=== PATIENT | female | born 1990 | race American Indian/Alaskan Native ===

== ENCOUNTER 2019-01-24 21:46 | Emergency (ER) | payer OTHER ==
[2019-01-24 21:53] VITALS: BP 113/68
--- NOTE | 2019-01-24 22:07 | Event Note ---
ED Screening Note Date of service: 01/24/19 Time: 22:04 ED Screening Note: This is a 28 y.o. F. that presents to the ER with abdominal pain radiating to back x 1 week. Reports nausea after eating. PMH: sickle cell trait LMP 11/21/2018, A0, history of irregular menses. Possible risk of This initial assessment/diagnostic orders/clinical plan/treatment(s) is/are subject to change based on patients health status, clinical progression and re- assessment by fellow clinical providers in the ED. Further treatment and workup at subsequent clinical providers discretion. Patient/guardian urged not to elope from the ED as their condition may be serious if not clinically assessed and managed. Initial orders include: Labs
[2019-01-24 22:46] LABS: Hematocrit 34.3 % (30.3-42.9); Hemoglobin 11.9 gm/dl (10.1-14.3); Mean Corpuscular HGB Conc 35 % (30-34); Mean Corpuscular Volume 83 fl (79-97); Platelet Count 249 K/mm3 (140-440); Red Blood Count 4.12 M/mm3 (3.65-5.03); Red Cell Distribution Width 13.9 % (13.2-15.2)
[2019-01-24 22:56] LABS: Bilirubin,Urine NEG (Negative); Blood,Urine NEG (Negative); Color,Urine Yellow (Yellow); Protein,Urine <15 mg/dL mg/dL (Negative); RBC,Urine < 1.0 /HPF (0.0-6.0)
[2019-01-24 23:06] LABS: WBC,Urine < 1.0 /HPF (0.0-6.0)
[2019-01-24 23:10] LABS: Alanine Aminotransferase 9 units/L (7-56); Albumin 3.6 g/dL (3.9-5); BUN/Creatinine Ratio 13; Blood Urea Nitrogen 9 mg/dL (7-17); Calcium 9.1 mg/dL (8.4-10.2); Hemolysis Index 27
[2019-01-24 23:35] LABS: Basophils % (Manual) 0 % (0.0-1.8); Total Cells Counted 100
[2019-01-24 23:40] LABS: RBC Morphology Normal
--- NOTE | 2019-01-24 23:46 | Emergency Department Report ---
ED Abdominal Pain HPI - General Chief Complaint: Abdominal Pain Stated Complaint: BACK PAIN,ABD PAIN AND HEADACHE Time Seen by Provider: 01/24/19 22:03 Source: patient Mode of arrival: Ambulatory Limitations: No Limitations - History of Present Illness Initial Comments: Patient is a 28-year-old female who presents to the emergency Department with complaints of lower back pain and suprapubic abdominal pain that began a week ago. She has associated nausea. She denies any vomiting, diarrhea, fever, urinary symptoms. She does not report any vaginal discharge or vaginal bleeding. She states her last menstrual period was at the end of October. She is not sure if she is or not. She has a past medical history of sickle cell trait. She states she has an allergy to penicillins. She denies any daily medications. - Related Data Allergies Allergy/AdvReac Type Severity Reaction Status Date / Time Penicillins Allergy Hives Verified 01/24/19 22:07 ED Review of Systems ROS: Stated complaint: BACK PAIN,ABD PAIN AND HEADACHE Other details as noted in HPI Comment: All other systems reviewed and negative ED Past Medical Hx - Past Medical History Previous Medical History?: Yes Additional medical history: Sickle Cell Trait - Surgical History Past Surgical History?: No - Social History Smoking Status: Never Smoker Substance Use Type: None ED Physical Exam - General Limitations: No Limitations General appearance: alert, in no apparent distress - Head Head exam: Present: atraumatic, normocephalic - Eye Eye exam: Present: normal appearance, PERRL - ENT ENT exam: Present: mucous membranes moist - Respiratory Respiratory exam: Present: normal lung sounds bilaterally. Absent: respiratory distress, wheezes, rales, rhonchi, stridor, chest wall tenderness, accessory muscle use, decreased breath sounds, prolonged expiratory - Cardiovascular Cardiovascular Exam: Present: regular rate, normal rhythm, normal heart sounds. Absent: systolic murmur, diastolic murmur, rubs, gallop - GI/Abdominal GI/Abdominal exam: Present: soft, normal bowel sounds. Absent: distended, tenderness, guarding, rebound, rigid - Back Exam Back exam: Absent: CVA tenderness (R), CVA tenderness (L) - Neurological Exam Neurological exam: Present: alert, oriented X3 - Psychiatric Psychiatric exam: Present: normal affect, normal mood - Skin Skin exam: Present: warm, dry, intact ED Course Vital Signs 01/24/19 21:51 Temperature 98.2 F Pulse Rate 73 Respiratory 18 Rate Blood Pressure 113/68 O2 Sat by Pulse 100 Oximetry ED Medical Decision Making - Lab Data Result diagrams: 01/24/19 22:28 01/24/19 22:28 Lab Results 01/24/19 01/24/19 01/24/19 Range/Units 22:28 22:28 22:28 WBC 9.1 (4.5-11.0) K/mm3 RBC 4.12 (3.65-5.03) M/mm3 Hgb 11.9 (10.1-14.3) gm/dl Hct 34.3 (30.3-42.9) % MCV 83 (79-97) fl MCH 29 (28-32) pg MCHC 35 H (30-34) % RDW 13.9 (13.2-15.2) % Plt Count 249 (140-440) K/mm3 Add Manual Diff Complete Total Counted 100 Seg Neuts % (Manual) 59.0 (40.0-70.0) % Band Neutrophils % 0 % Lymphocytes % (Manual) 31.0 (13.4-35.0) % Reactive Lymphs % (Man) 0 % Monocytes % (Manual) 4.0 (0.0-7.3) % Eosinophils % (Manual) 6.0 H (0.0-4.3) % Basophils % (Manual) 0 (0.0-1.8) % Metamyelocytes % 0 % Myelocytes % 0 % Promyelocytes % 0 % Blast Cells % 0 % Nucleated RBC % Not Reportable Seg Neutrophils # Man 5.4 (1.8-7.7) K/mm3 Band Neutrophils # 0.0 K/mm3 Lymphocytes # (Manual) 2.8 (1.2-5.4) K/mm3 Abs React Lymphs (Man) 0.0 K/mm3 Monocytes # (Manual) 0.4 (0.0-0.8) K/mm3 Eosinophils # (Manual) 0.5 H (0.0-0.4) K/mm3 Basophils # (Manual) 0.0 (0.0-0.1) K/mm3 Metamyelocytes # 0.0 K/mm3 Myelocytes # 0.0 K/mm3 Promyelocytes # 0.0 K/mm3 Blast Cells # 0.0 K/mm3 WBC Morphology Not Reportable Hypersegmented Neuts Not Reportable Hyposegmented Neuts Not Reportable Hypogranular Neuts Not Reportable Smudge Cells Not Reportable Toxic Granulation Not Reportable Toxic Vacuolation Not Reportable Dohle Bodies Not Reportable Pelger-Huet Anomaly Not Reportable [place] Rods Not Reportable Platelet Estimate Appears normal Clumped Platelets Not Reportable Plt Clumps, EDTA Not Reportable Large Platelets Not Reportable Giant Platelets Not Reportable Platelet Satelliting Not Reportable Plt Morphology Comment Not Reportable RBC Morphology Normal Dimorphic RBCs Not Reportable Polychromasia Not Reportable Hypochromasia Not Reportable Poikilocytosis Not Reportable Anisocytosis Not Reportable Microcytosis Not Reportable Macrocytosis Not Reportable Spherocytes Not Reportable Pappenheimer Bodies Not Reportable Sickle Cells Not Reportable Target Cells Not Reportable Tear Drop Cells Not Reportable Ovalocytes Not Reportable Helmet Cells Not Reportable Arvizu-[place]enburg Bodies Not Reportable [place] Rings Not Reportable [place] Cells Not Reportable Bite Cells Not Reportable Crenated Cell Not Reportable Elliptocytes Not Reportable Acanthocytes (Spur) Not Reportable Rouleaux Not Reportable Hemoglobin C Crystals Not Reportable Schistocytes Not Reportable Malaria parasites Not Reportable [place] Bodies Not Reportable Hem Pathologist Commnt No Sodium 137 (137-145) mmol/L Potassium 3.9 (3.6-5.0) mmol/L Chloride 99.2 (98-107) mmol/L Carbon Dioxide 24 (22-30) mmol/L Anion Gap 18 mmol/L BUN 9 (7-17) mg/dL Creatinine 0.7 (0.7-1.2) mg/dL Estimated GFR > 60 ml/min BUN/Creatinine Ratio 13 % Glucose 106 H (65-100) mg/dL Calcium 9.1 (8.4-10.2) mg/dL Total Bilirubin 0.20 (0.1-1.2) mg/dL AST 12 (5-40) units/L ALT 9 (7-56) units/L Alkaline Phosphatase 59 (35-129) units/L Total Protein 7.2 (6.3-8.2) g/dL Albumin 3.6 L (3.9-5) g/dL Albumin/Globulin Ratio 1.0 % Lipase 21 (13-60) units/L HCG, Qual Positive (Negative) HCG, Quant (0-4) mIU/mL Urine Color (Yellow) Urine Turbidity (Clear) Urine pH (5.0-7.0) Ur Specific [place] (1.003-1.030) Urine Protein (Negative) mg/dL Urine Glucose (UA) (Negative) mg/dL Urine Ketones (Negative) mg/dL Urine Blood (Negative) Urine Nitrite (Negative) Urine Bilirubin (Negative) Urine Urobilinogen (<2.0) mg/dL Ur Leukocyte Esterase (Negative) Urine WBC (Auto) (0.0-6.0) /HPF Urine RBC (Auto) (0.0-6.0) /HPF U Epithel Cells (Auto) (0-13.0) /HPF 01/24/19 01/24/19 Range/Units 22:28 Unknown WBC (4.5-11.0) K/mm3 RBC (3.65-5.03) M/mm3 Hgb (10.1-14.3) gm/dl Hct (30.3-42.9) % MCV (79-97) fl MCH (28-32) pg MCHC (30-34) % RDW (13.2-15.2) % Plt Count (140-440) K/mm3 Add Manual Diff Total Counted Seg Neuts % (Manual) (40.0-70.0) % Band Neutrophils % % Lymphocytes % (Manual) (13.4-35.0) % Reactive Lymphs % (Man) % Monocytes % (Manual) (0.0-7.3) % Eosinophils % (Manual) (0.0-4.3) % Basophils % (Manual) (0.0-1.8) % Metamyelocytes % % Myelocytes % % Promyelocytes % % Blast Cells % % Nucleated RBC % Seg Neutrophils # Man (1.8-7.7) K/mm3 Band Neutrophils # K/mm3 Lymphocytes # (Manual) (1.2-5.4) K/mm3 Abs React Lymphs (Man) K/mm3 Monocytes # (Manual) (0.0-0.8) K/mm3 Eosinophils # (Manual) (0.0-0.4) K/mm3 Basophils # (Manual) (0.0-0.1) K/mm3 Metamyelocytes # K/mm3 Myelocytes # K/mm3 Promyelocytes # K/mm3 Blast Cells # K/mm3 WBC Morphology Hypersegmented Neuts Hyposegmented Neuts Hypogranular Neuts Smudge Cells Toxic Granulation Toxic Vacuolation Dohle Bodies Pelger-Huet Anomaly [place] Rods Platelet Estimate Clumped Platelets Plt Clumps, EDTA Large Platelets Giant Platelets Platelet Satelliting Plt Morphology Comment RBC Morphology Dimorphic RBCs Polychromasia Hypochromasia Poikilocytosis Anisocytosis Microcytosis Macrocytosis Spherocytes Pappenheimer Bodies Sickle Cells Target Cells Tear Drop Cells Ovalocytes Helmet Cells Arvizu-Lunenburg Bodies [place] Rings [place] Cells Bite Cells Crenated Cell Elliptocytes Acanthocytes (Spur) Rouleaux Hemoglobin C Crystals Schistocytes Malaria parasites [place] Bodies Hem Pathologist Commnt Sodium (137-145) mmol/L Potassium (3.6-5.0) mmol/L Chloride (98-107) mmol/L Carbon Dioxide (22-30) mmol/L Anion Gap mmol/L BUN (7-17) mg/dL Creatinine (0.7-1.2) mg/dL Estimated GFR ml/min BUN/Creatinine Ratio % Glucose (65-100) mg/dL Calcium (8.4-10.2) mg/dL Total Bilirubin (0.1-1.2) mg/dL AST (5-40) units/L ALT (7-56) units/L Alkaline Phosphatase (35-129) units/L Total Protein (6.3-8.2) g/dL Albumin (3.9-5) g/dL Albumin/Globulin Ratio % Lipase (13-60) units/L HCG, Qual (Negative) HCG, Quant 66468 H (0-4) mIU/mL Urine Color Yellow (Yellow) Urine Turbidity Clear (Clear) Urine pH 6.0 (5.0-7.0) Ur Specific [place] 1.013 (1.003-1.030) Urine Protein <15 mg/dl (Negative) mg/dL Urine Glucose (UA) Neg (Negative) mg/dL Urine Ketones Neg (Negative) mg/dL Urine Blood Neg (Negative) Urine Nitrite Neg (Negative) Urine Bilirubin Neg (Negative) Urine Urobilinogen 2.0 (<2.0) mg/dL Ur Leukocyte Esterase Neg (Negative) Urine WBC (Auto) < 1.0 (0.0-6.0) /HPF Urine RBC (Auto) < 1.0 (0.0-6.0) /HPF U Epithel Cells (Auto) 5.0 (0-13.0) /HPF - Radiology Data Radiology results: report reviewed Ordering Physician: MELIDA BAILEY Date of Service: 01/24/19 Procedure(s): US OB transvaginal Accession Number(s): [id number] cc: MELIDA BAILEY PROCEDURE: Transvaginal obstetrical ultrasound. TECHNIQUE: Real-time transvaginal sonography of the uterus, placenta, amniotic fluid, adnexa, and fetus was performed with image documentation. Measurements were obtained to determine age/size. M-mode Doppler was used to document heartbeat. HISTORY: , abdominal pain, LMP and of October. COMPARISONS: None. FINDINGS: The uterus measures 8.5 cm x 6.5 cm x 7.4 cm. The myometrium appears uniform. There is an intrauterine gestational sac. A pole is visible. Cardiac activity is documented at 145 bpm. The crown-rump length measurement is 10.5 mm. This indicates a menstrual age of 7 weeks 1 day. The estimated date of confinement is 09/12/2019. Both ovaries appear normal in size. There is a cyst in the right ovary measuring 2.2 cm. IMPRESSION: Viable intrauterine with a menstrual age of 7 weeks 1 day. This document is electronically signed by Kee Kimble MD., January 25 2019 01:21:58 AM ET Transcribed By: [facility] Dictated By: KEE KIMBLE MD Electronically Authenticated By: KEE KIMBLE MD Signed Date/Time: 01/25/19 0123 - Medical Decision Making Patient is a 28-year-old female who presents to the emergency Department with complaints of lower back pain and suprapubic abdominal pain that began a week ago. She has associated nausea. She denies any vomiting, diarrhea, fever, urinary symptoms. She does not report any vaginal discharge or vaginal bleeding. She states her last menstrual period was at the end of October. She is not sure if she is or not. She has a past medical history of sickle cell trait. She states she has an allergy to penicillins. She denies any daily medications. labs WNL. hcg qual was positive. [place] [id number]. UA is normal. OB US shows Viable intrauterine with a menstrual age of 7 weeks 1 day. advised pt to please drink plenty of fluids. Please begin to take a daily vitamin [id number]. Follow-up with [facility] in the next 2-3 days. may take tylenol for discomfort. Return to emergency room for any new or worsening symptoms. - Differential Diagnosis , ectopic, ovarian cyst, UTI Critical care attestation.: If time is entered above; I have spent that time in minutes in the direct care of this critically ill patient, excluding procedure time. ED Disposition Clinical Impression: Qualifiers: Weeks of gestation: less than 8 weeks Qualified Code(s): Z3A.01 - Less than 8 weeks gestation of Abdominal pain Qualifiers: Abdominal location: lower abdomen, unspecified Qualified Code(s): R10.30 - Lower abdominal pain, unspecified Back pain Qualifiers: Back pain location: low back pain Chronicity: acute Back pain laterality: unspecified Sciatica presence: without sciatica Qualified Code(s): M54.5 - Low back pain Disposition: - TO HOME OR SELFCARE Is pt being admited?: No Does the pt Need Aspirin: No Condition: Stable Instructions: (ED) Additional Instructions: Please drink plenty of fluids. Please begin to take a daily vitamin [id number]. Follow-up with [facility] in the next 2-3 days. may take tylenol for discomfort. Return to emergency room for any new or worsening symptoms. Referrals: PERI TAYLOR MD [Primary Care Provider] - 2-3 Days MAINOR GAMEZ MD [Staff Physician] - 2-3 Days Time of Disposition: :27 Print Language: DANISH
--- NOTE | 2019-01-25 01:19 | Ultrasound Report ---
PROCEDURE: Transabdominal obstetrical ultrasound. TECHNIQUE: Real-time transabdominal sonography of the uterus, placenta, amniotic fluid, adnexa, and fetus was performed with image documentation. Measurements were obtained to determine age/size. M-mode Doppler was used to document heartbeat. ADDITIONAL GESTATION: None. HISTORY: , abdominal pain, LMP and of October. COMPARISONS: None. FINDINGS: Image quality is limited because the patient's bladder was not completely distended. The patient also appears to be obese. The uterus is suboptimally visualized. There is an intrauterine gestational sac . This should be better evaluated with transvaginal imaging. Neither ovary is identified. IMPRESSION: Very limited study. Intrauterine . This document is electronically signed by Kee Abernathy MD., January 25 2019 01:17:43 AM ET
--- NOTE | 2019-01-25 01:23 | Ultrasound Report ---
PROCEDURE: Transvaginal obstetrical ultrasound. TECHNIQUE: Real-time transvaginal sonography of the uterus, placenta, amniotic fluid, adnexa, and fe tus was performed with image documentation. Measurements were obtained to determine age/size. M -mode Doppler was used to document heartbeat. HISTORY: , abdominal pain, LMP and of October. COMPARISONS: None. FINDINGS: The uterus measures 8.5 cm x 6.5 cm x 7.4 cm. The myometrium appears uniform. There is an intrauterin e gestational sac. A pole is visible. Cardiac activity is documented at 145 bpm. The crown-rump length measurement is 10.5 mm. This indicates a menstrual age of 7 weeks 1 day. The estimated date o f confinement is 09/12/2019. Both ovaries appear normal in size. There is a cyst in the right ovary me asuring 2.2 cm. IMPRESSION: Viable intrauterine with a menstrual age of 7 weeks 1 day. This document is electronically signed by Kee Abernathy MD., January 25 2019 01:21:58 AM ET
== END 2019-01-25 01:42 | disposition home or self-care (01) ==
LOC: ED 21:46
DX: O26.891 Other specified pregnancy related conditions, first trimester (principal); R10.30 Lower abdominal pain, unspecified; M54.5 Low back pain; Z3A.01 Less than 8 weeks gestation of pregnancy; Z88.0 Allergy status to penicillin; D57.3 Sickle-cell trait
CPT/HCPCS: 36415; 76801; 76817; 80053; 81001; 83690; 84702; 84703; 85007; 85025

== ENCOUNTER 2019-04-01 11:00 | Emergency (ER) | payer MEDICAID, OTHER ==
--- NOTE | 2019-04-01 11:13 | Event Note ---
ED Screening Note Date of service: 04/01/19 Time: 11:10 ED Screening Note: 28 y o who is at 16 weeks gestation followed by [facility] presents with abd pain and low back pain x 1 week This initial assessment/diagnostic orders/clinical plan/treatment(s) is/are subject to change based on patients health status, clinical progression and re- assessment by fellow clinical providers in the ED. Further treatment and workup at subsequent clinical providers discretion. Patient/guardian urged not to elope from the ED as their condition may be serious if not clinically assessed and managed. Initial orders include: ua, FHT via doppler
[2019-04-01 11:52] LABS: Bilirubin,Urine NEG (Negative); Blood,Urine NEG (Negative); Color,Urine Yellow (Yellow); Mucus,Urine FEW /HPF; Protein,Urine <15 mg/dL mg/dL (Negative); Urobilinogen,Urine < 2.0 mg/dL (<2.0)
[2019-04-01] MEDS ORDERED: TYLENOL PO ONE (12:16)
--- NOTE | 2019-04-01 12:31 | Emergency Department Report ---
HPI - General Chief Complaint: Abdominal Pain Time Seen by Provider: 04/01/19 11:10 - HPI HPI: 28-year-old female presents to the emergency department with complaint of a one-week history of intermittent abdominal pain, low back pain and a generalized headache. Patient is currently at about 16 weeks gestation. With this she is with 3 live children. She has a past medical history of sickle cell trait. She follows with Dr. Ximena Love at [facility] for [facility] COORDINATOR. She is on vitamins. She has not taken anything for her symptoms prior to arrival. Currently she has just some mild upper abdominal pain. She denies any problems with bowel or bladder, numbness or paresthesias, vision change, slurred speech, or any neurological deficits. ED Past Medical Hx - Past Medical History Previous Medical History?: Yes Hx Hypertension: No Hx CVA: No Hx Heart Attack/AMI: No Hx Congestive Heart Failure: No Hx Diabetes: No Hx Deep Vein Thrombosis: No Hx Pulmonary Embolism: No Hx GERD: No Hx Liver Disease: No Hx Renal Disease: No Hx of Cancer: No Hx Sickle Cell Disease: No Hx Arthritis: No Hx Headaches / Migraines: No Hx Seizures: No Hx Kidney Stones: No Hx Psychiatric Treatment: No Hx Asthma: No Hx COPD: No Hx Tuberculosis: No Hx Dementia: No Hx HIV: No Additional medical history: Sickle Cell Trait - Surgical History Past Surgical History?: No Hx Coronary Stent: No Hx Open Heart Surgery: No Hx Pacemaker: No Hx Internal Defibrillator: No Hx Cholecystectomy: No Hx Appendectomy: No Hx Breast Surgery: No - Social History Smoking Status: Never Smoker Substance Use Type: None ED Review of Systems ROS: Stated complaint: HEADACHES/SEVERE STOMACH/BACK PAIN Other details as noted in HPI Comment: All other systems reviewed and negative Constitutional: denies: chills, fever Eyes: denies: eye pain, vision change ENT: denies: ear pain, throat pain Respiratory: denies: cough, shortness of breath Cardiovascular: denies: chest pain, palpitations Gastrointestinal: abdominal pain. denies: vomiting Genitourinary: discharge. denies: dysuria Musculoskeletal: back pain. denies: arthralgia Skin: denies: rash, lesions Neurological: headache. denies: weakness, numbness, paresthesias Physical Exam - Physical Exam Vital Signs: Vital Signs 04/01/19 04/01/19 11:09 12:22 Temperature 98.1 F Pulse Rate 92 H Respiratory 16 16 Rate Blood Pressure 105/67 O2 Sat by Pulse 100 Oximetry Physical Exam: GENERAL: The patient is well-developed well-nourished. HENT: Normocephalic. Atraumatic. Patient has moist mucous membranes. EYES: Extraocular motions are intact. NECK: Supple. Trachea is midline. CHEST/LUNGS: Clear to auscultation. There is no respiratory distress noted. HEART/CARDIOVASCULAR: Regular. There is no tachycardia. There is no murmur. ABDOMEN: Abdomen is soft, nontender. Patient has normal bowel sounds. There is no abdominal distention. SKIN: Skin is warm and dry. NEURO: The patient is awake, alert, and oriented. The patient is cooperative. The patient has no focal neurologic deficits. Normal speech. MUSCULOSKELETAL: There is no tenderness or deformity. There is no limitation range of motion. There is no evidence of acute injury. BACK: There is both midline and bilateral paraspinal lumbar tenderness to palpation. No step-off or deformity. PELVIC: Deferred ED Course Vital Signs 04/01/19 04/01/19 11:09 12:22 Temperature 98.1 F Pulse Rate 92 H Respiratory 16 16 Rate Blood Pressure 105/67 O2 Sat by Pulse 100 Oximetry ED Medical Decision Making - Radiology Data Radiology results: report reviewed OB ULTRASOUND >= 14 WEEKS FETUS ULTRASOUND OB TRANSVAGINAL INDICATION: Abdominal pain during TECHNIQUE: Transabdominal and transvaginal ultrasound with color Doppler imaging. COMPARISON: 01/24/2019 FINDINGS: A single gestation intrauterine is present with variable presentation. The placenta is anterior, grade 0 and free of the cervical os. heart tones measure 158 bpm. The cervix measures 2.1 cm. Amniotic fluid volume is normal with a fluid index of . The intracranial structures, diaphragm, spine, cord insertion, stomach, kidneys, and bladder show no sonographic abnormality. There is poor visualization of the four-chamber heart and three- vessel cord. Biparietal diameter is 3.5 cm which equals 16 weeks 6 days. Head circumference is 13.5 cm which equals 17 weeks 0 days. Abdominal circumference is 11.6 cm which equals 17 weeks 2 days. Femur length is 2.4 cm which equals 17 weeks 2 days. Overall estimated sonographic age is 17 weeks 1 day. HC/AC ratio: 1.2. Cephalic index: 79. Estimated weight: 187 g. IMPRESSION: Viable single intrauterine as described. No acute abnormality is detected. Signer Name: Hitesh Zuñiga Jr, MD Signed: 04/01/2019 2:25 PM Workstation Name: [id number] - Medical Decision Making Patient presents to the emergency department with complaint of some intermittent abdominal pain, mild headache and some low back pain while . Ultrasound shows a live intrauterine at about 17 weeks with no acute abnormalities detected. Labs have been unremarkable including urinalysis. On examination she does not have any focal, motor or sensory deficits in her cranial nerves are intact. Vital signs stable. Afebrile. No obvious signs of preeclampsia. The patient had mentioned some vaginal discharge but she deferred the pelvic examination and says she will just follow-up with the ACADEMIC SUCCESS COORDINATOR. She is been given some Tylenol for her symptoms with some improvement. Patient was seen ambulatory in the emergency department and appears stable. She is instructed to return to the emergency Department with any worsening of her symptoms or any acute distress. - Differential Diagnosis lumbar strain, muscle spasm, UTI, , miscarriage, fibroids Critical Care Time: No Critical care attestation.: If time is entered above; I have spent that time in minutes in the direct care of this critically ill patient, excluding procedure time. ED Disposition Clinical Impression: Intermittent abdominal pain Qualifiers: Weeks of gestation: 17 weeks Qualified Code(s): Z3A.17 - 17 weeks gestation of Back pain Qualifiers: Back pain location: low back pain Chronicity: unspecified Back pain laterality: bilateral Sciatica presence: without sciatica Qualified Code(s): M54.5 - Low back pain Disposition: DC-01 TO HOME OR SELFCARE Is pt being admited?: No Condition: Stable Instructions: (ED), Acute Headache (ED), Abdominal Pain (ED), Back Pain (ED) Additional Instructions: Please follow-up with your ACADEMIC SUCCESS COORDINATOR in the next few days. Return to the emergency Department with any worsening of your symptoms or any acute distress. Continue taking your vitamins. You can take Tylenol every 4-6 hours, using weight-based dosing on the back of the bottle, as needed for any discomfort. Referrals: OBGYN, Your [Other] - 2-3 Days Time of Disposition: 15:05
[2019-04-01 13:39] LABS: HCG Qualitative,Urine Positive (Negative)
--- NOTE | 2019-04-01 14:30 | Ultrasound Report ---
OB ULTRASOUND >= 14 WEEKS FETUS ULTRASOUND OB TRANSVAGINAL INDICATION: Abdominal pain during TECHNIQUE: Transabdominal and transvaginal ultrasound with color Doppler imaging. COMPARISON: 01/24/2019 FINDINGS: A single gestation intrauterine is present with variable presentation. The placenta is ante rior, grade 0 and free of the cervical os. heart tones measure 158 bpm. The cervix measures 2. 1 cm. Amniotic fluid volume is normal with a fluid index of . The intracranial structures, diaphragm, spine, cord insertion, stomach, kidneys, and bladder sh ow no sonographic abnormality. There is poor visualization of the four-chamber heart and three-vessel cord. Biparietal diameter is 3.5 cm which equals 16 weeks 6 days. Head circumference is 13.5 cm which equals 17 weeks 0 days. Abdominal circumference is 11.6 cm which equals 17 weeks 2 days. Femur length is 2.4 cm which equals 17 weeks 2 days. Overall estimated sonographic age is 17 weeks 1 day. HC/AC ratio: 1.2. Cephalic index: 79. Estimated weight: 187 g. IMPRESSION: Viable single intrauterine as described. No acute abnormality is detected. Signer Name: Hitesh Zuñiga Jr, MD Signed: 04/01/2019 2:25 PM Workstation Name: [id number]
[2019-04-01 15:39] VITALS: BP 100/60
== END 2019-04-01 15:17 | disposition home or self-care (01) ==
LOC: ED 11:00
DX: O26.892 Other specified pregnancy related conditions, second trimester (principal); M54.5 Low back pain; Z88.0 Allergy status to penicillin; Z3A.17 17 weeks gestation of pregnancy
CPT/HCPCS: 76805; 76817; 81001; 81025; 99284

== ENCOUNTER 2019-05-27 11:14 | Emergency (ER) | payer MEDICAID ==
--- NOTE | 2019-05-27 11:29 | Emergency Department Report ---
Blank Doc - Documentation Documentation: 28-year-old female that presents with generlized abdominal pain and back pain with nausea. This initial assessment/diagnostic orders/clinical plan/treatment(s) is/are subject to change based on patient's health status, clinical progression and re- assessment by fellow clinical providers in the ED. Further treatment and workup at subsequent clinical providers discretion. Patient/guardians urged not to elope from the ED as their condition may be serious if not clinically assessed and managed. Initial orders include: 1- Patient sent to [facility] for further evaluation and treatment 2- labs 3- UA
[2019-05-27 13:28] LABS: Bilirubin,Urine NEG (Negative); Blood,Urine LG (Negative); Color,Urine Yellow (Yellow); Protein,Urine <15 mg/dL mg/dL (Negative); Urobilinogen,Urine < 2.0 mg/dL (<2.0)
[2019-05-27 13:36] LABS: Basophils # (Auto) 0.1 K/mm3 (0.0-0.1); Basophils % (Auto) 1.9 % (0.0-1.8); Eosinophils # (Auto) 0.2 K/mm3 (0.0-0.4); Hematocrit 33.2 % (30.3-42.9); Hemoglobin 10.7 gm/dl (10.1-14.3); Lymphocytes # (Auto) 2.5 K/mm3 (1.2-5.4); Mean Corpuscular HGB Conc 32 % (30-34); Mean Corpuscular Volume 80 fl (79-97); Monocytes # (Auto) 0.4 K/mm3 (0.0-0.8); Monocytes % (Auto) 5.9 % (0.0-7.3); Red Blood Count 4.15 M/mm3 (3.65-5.03); Red Cell Distribution Width 15.5 % (13.2-15.2)
[2019-05-27 14:16] LABS: Platelet Count 334 K/mm3 (140-440)
[2019-05-27 15:13] LABS: Alanine Aminotransferase 12 units/L (7-56); Albumin 4.5 g/dL (3.9-5); BUN/Creatinine Ratio 10; Blood Urea Nitrogen 8 mg/dL (7-17); Calcium 9.5 mg/dL (8.4-10.2); Hemolysis Index 12
--- NOTE | 2019-05-27 16:20 | XRay Report ---
ABDOMEN 1 VIEW(S) INDICATION / CLINICAL INFORMATION: back and abd pain. COMPARISON: None available. FINDINGS: TUBES / LINES: None. BOWEL GAS PATTERN/EXTRALUMINAL GAS: No significant abnormality. No pneumatosis or secondary signs of free air. ADDITIONAL FINDINGS: No significant additional findings. IMPRESSION: 1. No acute abnormality. Signer Name: Leo Paige MD Signed: 05/27/2019 4:15 PM Workstation Name: [id number]
--- NOTE | 2019-05-27 17:07 | Emergency Department Report ---
ED Abdominal Pain HPI - General Chief Complaint: Abdominal Pain Stated Complaint: BACK/STOMACH PAIN/HEADPAIN Time Seen by Provider: 05/27/19 11:28 Source: patient Mode of arrival: Ambulatory Limitations: No Limitations - History of Present Illness Initial Comments: Is a 28-year-old -[place] female who is complaining of some lower back discomfort and lower abdominal pain for approximately week. She states pains are worse at night and [facility] [employer] time. Also worse with movement. Patient states achy pain. There is no radiation. She denies nausea vomiting diarrhea but does have associated mild headache. Also states is been no dysuria vaginal discharge or vaginal bleeding. Patient denies cough cold congestion. - Related Data Previous Rx's Medication Instructions Recorded Last Taken Type Ibuprofen [Motrin 800 MG tab] 800 mg PO Q8HR PRN #10 tablet 05/27/19 Unknown Rx Allergies Allergy/AdvReac Type Severity Reaction Status Date / Time Penicillins Allergy Hives Verified 01/24/19 22:07 ED Review of Systems ROS: Stated complaint: BACK/STOMACH PAIN/HEADPAIN Other details as noted in HPI Comment: All other systems reviewed and negative ED Past Medical Hx - Past Medical History Previous Medical History?: No Hx Hypertension: No Hx CVA: No Hx Heart Attack/AMI: No Hx Congestive Heart Failure: No Hx Diabetes: No Hx Deep Vein Thrombosis: No Hx Pulmonary Embolism: No Hx GERD: No Hx Liver Disease: No Hx Renal Disease: No Hx Sickle Cell Disease: No Hx Arthritis: No Hx Headaches / Migraines: No Hx Seizures: No Hx Kidney Stones: No Hx Psychiatric Treatment: No Hx Asthma: No Hx COPD: No Hx Tuberculosis: No Hx Dementia: No Hx HIV: No Additional medical history: Sickle Cell Trait - Surgical History Past Surgical History?: No Hx Coronary Stent: No Hx Open Heart Surgery: No Hx Pacemaker: No Hx Internal Defibrillator: No Hx Cholecystectomy: No Hx Appendectomy: No Hx Breast Surgery: No - Social History Smoking Status: Never Smoker Substance Use Type: None - Medications Home Medications: Home Medications Medication Instructions Recorded Confirmed Last Taken Type Ibuprofen [Motrin 800 MG tab] 800 mg PO Q8HR PRN #10 tablet 05/27/19 Unknown Rx ED Physical Exam - General Limitations: No Limitations General appearance: alert, in no apparent distress - Head Head exam: Present: atraumatic, normocephalic - Eye Eye exam: Present: normal appearance - ENT ENT exam: Present: mucous membranes moist - Neck Neck exam: Present: normal inspection - Respiratory Respiratory exam: Present: normal lung sounds bilaterally. Absent: respiratory distress, wheezes, rales, rhonchi - Cardiovascular Cardiovascular Exam: Present: regular rate, normal rhythm, normal heart sounds. Absent: systolic murmur, diastolic murmur, rubs, gallop - GI/Abdominal GI/Abdominal exam: Present: soft, normal bowel sounds. Absent: distended, tenderness, guarding - Extremities Exam Extremities exam: Present: normal inspection - Back Exam Back exam: Present: normal inspection, paraspinal tenderness - Neurological Exam Neurological exam: Present: alert, oriented X3 - Psychiatric Psychiatric exam: Present: normal affect, normal mood - Skin Skin exam: Present: warm, dry, intact, normal color. Absent: rash ED Course Vital Signs 05/27/19 11:29 Temperature 98.1 F Pulse Rate 88 Respiratory 18 Rate Blood Pressure 120/78 O2 Sat by Pulse 98 Oximetry ED Medical Decision Making - Lab Data Result diagrams: 05/27/19 12:56 05/27/19 12:56 Lab Results 05/27/19 05/27/19 05/27/19 Range/Units 12:46 12:56 12:56 WBC 7.3 (4.5-11.0) K/mm3 RBC 4.15 (3.65-5.03) M/mm3 Hgb 10.7 (10.1-14.3) gm/dl Hct 33.2 (30.3-42.9) % MCV 80 (79-97) fl MCH 26 L (28-32) pg MCHC 32 (30-34) % RDW 15.5 H (13.2-15.2) % Plt Count 334 (140-440) K/mm3 Lymph % (Auto) 34.0 (13.4-35.0) % [place] % (Auto) 5.9 (0.0-7.3) % Eos % (Auto) 3.0 (0.0-4.3) % Baso % (Auto) 1.9 H (0.0-1.8) % Lymph # 2.5 (1.2-5.4) K/mm3 [place] # 0.4 (0.0-0.8) K/mm3 Eos # 0.2 (0.0-0.4) K/mm3 Baso # 0.1 (0.0-0.1) K/mm3 Seg Neutrophils % 55.2 (40.0-70.0) % Seg Neutrophils # 4.0 (1.8-7.7) K/mm3 Sodium 141 (137-145) mmol/L Potassium 4.3 (3.6-5.0) mmol/L Chloride 104.6 (98-107) mmol/L Carbon Dioxide 17 L (22-30) mmol/L Anion Gap 24 mmol/L BUN 8 (7-17) mg/dL Creatinine 0.8 (0.7-1.2) mg/dL Estimated GFR > 60 ml/min BUN/Creatinine Ratio 10 % Glucose 73 (65-100) mg/dL Calcium 9.5 (8.4-10.2) mg/dL Total Bilirubin 0.30 (0.1-1.2) mg/dL AST 17 (5-40) units/L ALT 12 (7-56) units/L Alkaline Phosphatase 87 (35-129) units/L Total Protein 8.6 H (6.3-8.2) g/dL Albumin 4.5 (3.9-5) g/dL Albumin/Globulin Ratio 1.1 % Lipase 23 (13-60) units/L HCG, Qual (Negative) Urine Color Yellow (Yellow) Urine Turbidity Clear (Clear) Urine pH 7.0 (5.0-7.0) Ur Specific [place] 1.011 (1.003-1.030) Urine Protein <15 mg/dl (Negative) mg/dL Urine Glucose (UA) Neg (Negative) mg/dL Urine Ketones Neg (Negative) mg/dL Urine Blood Lg (Negative) Urine Nitrite Neg (Negative) Urine Bilirubin Neg (Negative) Urine Urobilinogen < 2.0 (<2.0) mg/dL Ur Leukocyte Esterase Tr (Negative) Urine WBC (Auto) 2.0 (0.0-6.0) /HPF Urine RBC (Auto) 4.0 (0.0-6.0) /HPF U Epithel Cells (Auto) 6.0 (0-13.0) /HPF 05/27/19 Range/Units 12:56 WBC (4.5-11.0) K/mm3 RBC (3.65-5.03) M/mm3 Hgb (10.1-14.3) gm/dl Hct (30.3-42.9) % MCV (79-97) fl MCH (28-32) pg MCHC (30-34) % RDW (13.2-15.2) % Plt Count (140-440) K/mm3 Lymph % (Auto) (13.4-35.0) % [place] % (Auto) (0.0-7.3) % Eos % (Auto) (0.0-4.3) % Baso % (Auto) (0.0-1.8) % Lymph # (1.2-5.4) K/mm3 [place] # (0.0-0.8) K/mm3 Eos # (0.0-0.4) K/mm3 Baso # (0.0-0.1) K/mm3 Seg Neutrophils % (40.0-70.0) % Seg Neutrophils # (1.8-7.7) K/mm3 Sodium (137-145) mmol/L Potassium (3.6-5.0) mmol/L Chloride (98-107) mmol/L Carbon Dioxide (22-30) mmol/L Anion Gap mmol/L BUN (7-17) mg/dL Creatinine (0.7-1.2) mg/dL Estimated GFR ml/min BUN/Creatinine Ratio % Glucose (65-100) mg/dL Calcium (8.4-10.2) mg/dL Total Bilirubin (0.1-1.2) mg/dL AST (5-40) units/L ALT (7-56) units/L Alkaline Phosphatase (35-129) units/L Total Protein (6.3-8.2) g/dL Albumin (3.9-5) g/dL Albumin/Globulin Ratio % Lipase (13-60) units/L HCG, Qual Negative (Negative) Urine Color (Yellow) Urine Turbidity (Clear) Urine pH (5.0-7.0) Ur Specific [place] (1.003-1.030) Urine Protein (Negative) mg/dL Urine Glucose (UA) (Negative) mg/dL Urine Ketones (Negative) mg/dL Urine Blood (Negative) Urine Nitrite (Negative) Urine Bilirubin (Negative) Urine Urobilinogen (<2.0) mg/dL Ur Leukocyte Esterase (Negative) Urine WBC (Auto) (0.0-6.0) /HPF Urine RBC (Auto) (0.0-6.0) /HPF U Epithel Cells (Auto) (0-13.0) /HPF - Radiology Data Radiology results: report reviewed KUB WNL - Medical Decision Making Patient's is a 28 year -[place] female with lower abdominal and low back pain. Large differential including diverticulosis urinary tract infection ovarian cysts colitis constipation obstruction. Patient's x-ray and laboratory studies are within normal limits. Patient will be referred to her [facility] for follow-up. Critical care attestation.: If time is entered above; I have spent that time in minutes in the direct care of this critically ill patient, excluding procedure time. ED Disposition Clinical Impression: Back pain, Headache Disposition: DC- TO HOME OR SELFCARE Is pt being admited?: No Does the pt Need Aspirin: No Condition: Stable Instructions: Acute Low Back Pain (ED), Acute Headache (ED) Referrals: PRIMARY CARE, [Primary Care Provider] - 3-5 Days Time of Disposition: 17:06
[2019-05-27 17:08] VITALS: BP 103/69
== END 2019-05-27 17:18 | disposition home or self-care (01) ==
LOC: ED 11:14
DX: M54.5 Low back pain (principal); R51 Headache; Z79.899 Other long term (current) drug therapy; Z88.0 Allergy status to penicillin
CPT/HCPCS: 36415; 74018; 80053; 81001; 83690; 84703; 85025; 99283

== ENCOUNTER 2019-06-24 18:24 | Emergency (ER) | payer MEDICAID ==
[2019-06-24 18:39] VITALS: BP 110/60
--- NOTE | 2019-06-24 18:41 | Event Note ---
ED Screening Note Date of service: 06/17/19 Time: 18:37 ED Screening Note: This is a 28 y.o. F. that present to the ER with headache and low back pain x 1 week. Reports urinary frequency. Denies vaginal discharge, pelvic pain, hematuria, or dysuria. This initial assessment/diagnostic orders/clinical plan/treatment(s) is/are subject to change based on patients health status, clinical progression and re- assessment by fellow clinical providers in the ED. Further treatment and workup at subsequent clinical providers discretion. Patient/guardian urged not to elope from the ED as their condition may be serious if not clinically assessed and managed. Initial orders include: UA and
[2019-06-24] MEDS ORDERED: ACETAMINOPHEN 500 MG TAB PO ONE (19:28)
[2019-06-24] MEDS ORDERED: diphenhydrAMINE 25 MG CAP PO ONE (19:28)
[2019-06-24 19:33] LABS: Bilirubin,Urine NEG (Negative); Blood,Urine NEG (Negative); Color,Urine Yellow (Yellow); Mucus,Urine FEW /HPF; Protein,Urine <15 mg/dL mg/dL (Negative); Urobilinogen,Urine < 2.0 mg/dL (<2.0); WBC,Urine < 1.0 /HPF (0.0-6.0)
--- NOTE | 2019-06-24 19:43 | Emergency Department Report ---
ED Female HPI - General Chief complaint: Headache Stated complaint: HEADACHES/BACK PAIN Time Seen by Provider: 06/24/19 18:37 Source: patient Mode of arrival: Ambulatory Limitations: No Limitations - History of Present Illness Initial comments: This is a 28 y.o. F. that present to the ER with headache and low back pain x 1 week. There is associated urinary frequency. Pt denies vaginal discharge, pelvic pain, hematuria, or dysuria. There is no fever or chills, no n/v , lMP 6 weeks ago. MD Complaint: dysuria Onset/Timin -: week(s) Severity: mild Severity scale (0 -10): 3 Quality: other (frequency ) Consistency: intermittent Worsens with: none Are you Now?: No Last Menstrual Period: 05/06/19 EDC: 02/10/20 Associated Symptoms: dysuria - Related Data Sexually active: Yes Previous Rx's Medication Instructions Recorded Last Taken Type Ibuprofen [Motrin 800 MG tab] 800 mg PO Q8HR PRN #10 tablet 05/27/19 Unknown Rx Acetaminophen [Acetaminophen TAB] 1,000 mg PO Q6HR PRN #30 tablet 06/24/19 Unknown Rx Metoclopramide [Reglan] 10 mg PO TID PRN #10 tab 06/24/19 Unknown Rx diphenhydrAMINE [Benadryl CAP] 25 mg PO Q6HR PRN #30 capsule 06/24/19 Unknown Rx Allergies Allergy/AdvReac Type Severity Reaction Status Date / Time Penicillins Allergy Hives Verified 01/24/19 22:07 ED Review of Systems ROS: Stated complaint: HEADACHES/BACK PAIN Other details as noted in HPI Constitutional: denies: chills, fever Eyes: denies: eye pain, eye discharge, vision change ENT: denies: ear pain, throat pain Respiratory: denies: cough, shortness of breath, wheezing Cardiovascular: denies: chest pain, palpitations Endocrine: no symptoms reported Gastrointestinal: denies: abdominal pain, nausea, vomiting, diarrhea Genitourinary: frequency. denies: urgency, dysuria, hematuria, discharge, dyspareunia Musculoskeletal: back pain. denies: joint swelling, arthralgia Skin: denies: rash, lesions Neurological: headache. denies: weakness, paresthesias Psychiatric: denies: anxiety, depression Hematological/Lymphatic: denies: easy bleeding, easy bruising ED Past Medical Hx - Past Medical History Hx Hypertension: No Hx CVA: No Hx Heart Attack/AMI: No Hx Congestive Heart Failure: No Hx Diabetes: No Hx Deep Vein Thrombosis: No Hx Pulmonary Embolism: No Hx GERD: No Hx Liver Disease: No Hx Renal Disease: No Hx Sickle Cell Disease: No Hx Arthritis: No Hx Headaches / Migraines: No Hx Seizures: No Hx Kidney Stones: No Hx Psychiatric Treatment: No Hx Asthma: No Hx COPD: No Hx Tuberculosis: No Hx Dementia: No Hx HIV: No Additional medical history: Sickle Cell Trait - Surgical History Hx Coronary Stent: No Hx Open Heart Surgery: No Hx Pacemaker: No Hx Internal Defibrillator: No Hx Cholecystectomy: No Hx Appendectomy: No Hx Breast Surgery: No - Social History Smoking Status: Never Smoker Substance Use Type: None - Medications Home Medications: Home Medications Medication Instructions Recorded Confirmed Last Taken Type Ibuprofen [Motrin 800 MG tab] 800 mg PO Q8HR PRN #10 tablet 05/27/19 Unknown Rx Acetaminophen [Acetaminophen TAB] 1,000 mg PO Q6HR PRN #30 tablet 06/24/19 Unknown Rx Metoclopramide [Reglan] 10 mg PO TID PRN #10 tab 06/24/19 Unknown Rx diphenhydrAMINE [Benadryl CAP] 25 mg PO Q6HR PRN #30 capsule 06/24/19 Unknown Rx ED Physical Exam - General Limitations: No Limitations General appearance: alert, in no apparent distress - Head Head exam: Present: atraumatic, normocephalic - Eye Eye exam: Present: normal appearance - ENT ENT exam: Present: mucous membranes moist - Neck Neck exam: Present: normal inspection - Respiratory Respiratory exam: Present: normal lung sounds bilaterally. Absent: respiratory distress - Cardiovascular Cardiovascular Exam: Present: regular rate, normal rhythm. Absent: systolic mu rmur, diastolic murmur, rubs, gallop - GI/Abdominal GI/Abdominal exam: Present: soft, normal bowel sounds. Absent: distended, tenderness, guarding, rebound, rigid, bruit, hernia - Rectal Rectal exam: Present: deferred - External exam: Present: other (deferred per patient ) - Extremities Exam Extremities exam: Present: normal inspection - Back Exam Back exam: Present: normal inspection, full ROM. Absent: tenderness, CVA tenderness (R), CVA tenderness (L), vertebral tenderness, rash noted - Neurological Exam Neurological exam: Present: alert, oriented X3, CN II-XII intact, normal gait, reflexes normal. Absent: motor sensory deficit - Psychiatric Psychiatric exam: Present: normal affect, normal mood - Skin Skin exam: Present: warm, dry, intact, normal color. Absent: rash ED Course Vital Signs 06/24/19 18:37 Temperature 98.1 F Pulse Rate 80 Respiratory 18 Rate Blood Pressure 110/60 O2 Sat by Pulse 100 Oximetry ED Medical Decision Making - Lab Data Labs 06/24/19 Unknown Urine Color Yellow Urine Turbidity Clear Urine pH 5.0 Ur Specific [place] 1.013 Urine Protein <15 mg/dl Urine Glucose (UA) Neg Urine Ketones Neg Urine Blood Neg Urine Nitrite Neg Urine Bilirubin Neg Urine Urobilinogen < 2.0 Ur Leukocyte Esterase Neg Urine WBC (Auto) < 1.0 Urine RBC (Auto) 2.0 U Epithel Cells (Auto) 2.0 Urine Mucus Few Urine HCG, Qual Negative - Medical Decision Making improved, hcg is negative , urine, plan: tylenol, benadry, reglan, prn headache, follow up with pcp in 2-3 days return to ed if symptoms worsen, pt verbalized agreement and understanding of discharge plan dc'd to home in stable condition at this time. Critical care attestation.: If time is entered above; I have spent that time in minutes in the direct care of this critically ill patient, excluding procedure time. ED Disposition Clinical Impression: Headache Qualifiers: Headache type: unspecified Headache chronicity pattern: acute headache Intractability: not intractable Qualified Code(s): R51 - Headache Disposition: DC-01 TO HOME OR SELFCARE Is pt being admited?: No Does the pt Need Aspirin: No Condition: Stable Instructions: Acute Headache (ED) Additional Instructions: your test is negative, your urine test is normal no infection, Take medications as prescribed, follow up with your primary care doctor idf symptoms not improving. Prescriptions: Acetaminophen [Acetaminophen TAB] 1,000 mg PO Q6HR PRN #30 tablet PRN Reason: Headache diphenhydrAMINE [Benadryl CAP] 25 mg PO Q6HR PRN #30 capsule PRN Reason: Headache Metoclopramide [Reglan] 10 mg PO TID PRN #10 tab PRN Reason: Headache Referrals: PRIMARY CARE, [Primary Care Provider] - 3-5 Days KIRILL CHOWDHURY MD [Staff Physician] - 3-5 Days Forms: Work/School Release Form(ED) Time of Disposition: 20:01
[2019-06-24 19:47] LABS: HCG Qualitative,Urine Negative (Negative)
== END 2019-06-24 20:14 | disposition home or self-care (01) ==
LOC: ED 18:24
DX: R51 Headache (principal); M54.5 Low back pain; R35.0 Frequency of micturition; D57.3 Sickle-cell trait; Z79.899 Other long term (current) drug therapy; Z88.0 Allergy status to penicillin
CPT/HCPCS: 81001; 81025

== ENCOUNTER 2020-09-20 08:51 | Emergency (ER) | payer MEDICAID ==
[2020-09-20 08:57] VITALS: BP 111/62
--- NOTE | 2020-09-20 09:09 | Emergency Department Report ---
ED ENT HPI - General Chief complaint: Sore Throat Stated complaint: SORE THROAT Time Seen by Provider: 09/20/20 09:08 Source: patient Mode of arrival: Ambulatory Limitations: No Limitations - History of Present Illness Initial comments: 29-year-old female with no significant past medical history presents to the ER today complaining of sore throat. She states her symptoms started 5 days ago. She states that she has pain with swallowing and she feels some mild swelling in her throat. She also states that she has had decreased sense of taste. She de nies fever, chills, trismus, drooling, difficulty breathing or any other symptoms at this time. MD complaint: sore throat, difficulty swallowing -: Gradual (5 days ago ) Location: throat - Related Data Previous Rx's Medication Instructions Recorded Last Taken Type Ibuprofen [Motrin 800 MG tab] 800 mg PO Q8HR PRN #10 tablet 05/27/19 Unknown Rx Acetaminophen [Acetaminophen TAB] 1,000 mg PO Q6HR PRN #30 tablet 06/24/19 Unknown Rx Metoclopramide [Reglan] 10 mg PO TID PRN #10 tab 06/24/19 Unknown Rx diphenhydrAMINE [Benadryl CAP] 25 mg PO Q6HR PRN #30 capsule 06/24/19 Unknown Rx Clindamycin [Clindamycin CAP] 300 mg PO Q8H #30 cap 09/20/20 Unknown Rx predniSONE [Deltasone] 50 mg PO QDAY #5 tab 09/20/20 Unknown Rx Allergies Allergy/AdvReac Type Severity Reaction Status Date / Time Penicillins Allergy Hives Verified 01/24/19 22:07 ED Dental HPI - General Chief complaint: Sore Throat Stated complaint: SORE THROAT Time Seen by Provider: 09/20/20 09:08 Source: patient Mode of arrival: Ambulatory Limitations: No Limitations - Related Data Previous Rx's Medication Instructions Recorded Last Taken Type Ibuprofen [Motrin 800 MG tab] 800 mg PO Q8HR PRN #10 tablet 05/27/19 Unknown Rx Acetaminophen [Acetaminophen TAB] 1,000 mg PO Q6HR PRN #30 tablet 06/24/19 Unknown Rx Metoclopramide [Reglan] 10 mg PO TID PRN #10 tab 06/24/19 Unknown Rx diphenhydrAMINE [Benadryl CAP] 25 mg PO Q6HR PRN #30 capsule 06/24/19 Unknown Rx Clindamycin [Clindamycin CAP] 300 mg PO Q8H #30 cap 09/20/20 Unknown Rx predniSONE [Deltasone] 50 mg PO QDAY #5 tab 09/20/20 Unknown Rx Allergies Allergy/AdvReac Type Severity Reaction Status Date / Time Penicillins Allergy Hives Verified 01/24/19 22:07 ED Review of Systems ROS: Stated complaint: SORE THROAT Other details as noted in HPI Comment: All other systems reviewed and negative ENT: throat pain, other ([place] sense of taste). denies: ear pain Respiratory: denies: cough, shortness of breath, wheezing Cardiovascular: denies: chest pain, palpitations Endocrine: no symptoms reported Gastrointestinal: denies: abdominal pain, nausea, diarrhea Musculoskeletal: denies: back pain, joint swelling, arthralgia Skin: denies: rash, lesions Neurological: denies: headache, weakness, paresthesias Psychiatric: denies: anxiety, depression Hematological/Lymphatic: denies: easy bleeding, easy bruising ED Past Medical Hx - Past Medical History Previous Medical History?: No Hx Hypertension: No Hx CVA: No Hx Heart Attack/AMI: No Hx Congestive Heart Failure: No Hx Diabetes: No Hx Deep Vein Thrombosis: No Hx Pulmonary Embolism: No Hx GERD: No Hx Liver Disease: No Hx Renal Disease: No Hx Sickle Cell Disease: No Hx Arthritis: No Hx Headaches / Migraines: No Hx Seizures: No Hx Kidney Stones: No Hx Psychiatric Treatment: No Hx Asthma: No Hx COPD: No Hx Tuberculosis: No Hx Dementia: No Hx HIV: No Additional medical history: Sickle Cell Trait - Surgical History Past Surgical History?: No Hx Coronary Stent: No Hx Open Heart Surgery: No Hx Pacemaker: No Hx Internal Defibrillator: No Hx Cholecystectomy: No Hx Appendectomy: No Hx Breast Surgery: No - Social History Smoking Status: Never Smoker Substance Use Type: None - Medications Home Medications: Home Medications Medication Instructions Recorded Confirmed Last Taken Type Ibuprofen [Motrin 800 MG tab] 800 mg PO Q8HR PRN #10 tablet 05/27/19 Unknown Rx Acetaminophen [Acetaminophen TAB] 1,000 mg PO Q6HR PRN #30 tablet 06/24/19 Unknown Rx Metoclopramide [Reglan] 10 mg PO TID PRN #10 tab 06/24/19 Unknown Rx diphenhydrAMINE [Benadryl CAP] 25 mg PO Q6HR PRN #30 capsule 06/24/19 Unknown Rx Clindamycin [Clindamycin CAP] 300 mg PO Q8H #30 cap 09/20/20 Unknown Rx predniSONE [Deltasone] 50 mg PO QDAY #5 tab 09/20/20 Unknown Rx ED Physical Exam - General Limitations: No Limitations General appearance: alert, in no apparent distress - Head Head exam: Present: atraumatic, normocephalic, normal inspection - Eye Eye exam: Present: normal appearance, PERRL, EOMI Pupils: Present: normal accommodation - ENT ENT exam: Present: normal exam, mucous membranes moist, other (Moderate swelling to both tonsils as well as some mild swelling to the uvula. Both tonsils and uvula are moderately erythematous. No exudates noted. No trismus or drooling or voice change) - Neck Neck exam: Present: normal inspection, full ROM. Absent: tenderness, meningismus - Respiratory Respiratory exam: Absent: respiratory distress - Cardiovascular Cardiovascular Exam: Present: regular rate - Neurological Exam Neurological exam: Present: alert, oriented X3 - Psychiatric Psychiatric exam: Present: normal affect, normal mood - Skin Skin exam: Present: intact ED Course Vital Signs 09/20/20 08:55 Temperature 98.4 F Pulse Rate 81 Respiratory 20 Rate Blood Pressure 111/62 O2 Sat by Pulse 99 Oximetry ED Medical Decision Making - Medical Decision Making 0918 The patient is resting comfortably and is well-appearing and in no acute distress. There is no respiratory distress, no stridor and the mental status is normal. The neurological exam is normal, and there is no significant signs of dehydration. The history, exam, diagnostic testing and the patient current condition does not suggest an infectious process such as meningitis, retropharyngeal abscess, epiglottitis, peritonsillar abscess, Quintin's angina, mastoiditis, orbital cellulitis, periorbital cellulitis, severe meningitis, malignant otitis externa, sepsis or any significant pathology warranting further testing, continued ED treatment, admission, consultation or any other evaluation at this time. The vital signs have been stable. The patient condition is stable and appropriate for discharge. Critical care attestation.: If time is entered above; I have spent that time in minutes in the direct care of this critically ill patient, excluding procedure time. ED Disposition Clinical Impression: Tonsillitis, Uvulitis Disposition: DC-01 TO HOME OR SELFCARE Is pt being admited?: No Does the pt Need Aspirin: No Condition: Stable Instructions: Tonsillitis, Uvulitis Additional Instructions: Take the antibiotics and steroid as prescribed. Given your last decrease in symptoms I would recommend that she get a COVID-19 test before going back to work. If your COVID-19 test is negative you should be able to return to work. Drink lots of fluids. Follow-up with your primary care doctor. Return to the ER if your symptoms changes or worsens in any way. Prescriptions: Clindamycin [Clindamycin CAP] 300 mg PO Q8H #30 cap predniSONE [Deltasone] 50 mg PO QDAY #5 tab Referrals: GIAN ALVARADO MD [Staff Physician] - 3-5 Days Forms: Work/School Release Form(ED) Time of Disposition: 09:16
== END 2020-09-20 10:00 | disposition home or self-care (01) ==
LOC: ED 08:51
DX: J03.90 Acute tonsillitis, unspecified (principal); K12.2 Cellulitis and abscess of mouth; Z79.899 Other long term (current) drug therapy; Z88.0 Allergy status to penicillin
CPT/HCPCS: 99281